=== PATIENT | male | born 1940 | race Caucasian/White ===

== ENCOUNTER 2017-03-30 05:12 | Emergency (ER) | payer OTHER ==
[~2017-03-30] VITALS: Ht 170.2 cm; Wt 84.1 kg
[~2017-03-30 05:12] MED LIST: AMLODIPINE BESY10 MG PO
[2017-03-30 06:08] LABS: ADD MIUA? NO; BILIRUBIN NEGATIVE; BLOOD NEGATIVE; COLOR YELLOW ((YELLOW)); GLUCOSE (STRIP) NEGATIVE; KETONES 5; LEUKOCYTES NEGATIVE; NITRITE NEGATIVE; PROTEIN (STRIP) NEGATIVE; SPECIFIC GRAVITY 1.008 (1.000-1.030); UCUL ADDED? NO; UROBILINOGEN 0.2 MG/DL (0.2-1.0)
[2017-03-30 06:09] LABS: HEMATOCRIT 44.2 % (38.0-50.0); MCHC 32.6 G/DL (30.0-36.0); MCV 89.1 FL (86-99); MEAN PLAT.VOLUME 9.8 uM^3 (9.0-12.4); PLATELET COUNT 262 K/uL (156-360); RBC DIS.WIDTH-CV 12.4 % (11.8-14.6); RBC DIS.WIDTH-SD 40.2 % (39-53); RED BLOOD COUNT 4.96 M/uL (4.00-5.50); WHITE BLOOD COUNT 10.8 K/uL (4.1-10.2)
[2017-03-30 06:27] LABS: CHLORIDE 104 mEq/L (99-109); SODIUM 141 mEq/L (136-147)
[2017-03-30 06:28] LABS: GLUCOSE 132 mg/dL (70-99)
[2017-03-30 06:30] LABS: ANION GAP 10 MEQ/L (2-14)
[2017-03-30 06:32] LABS: GFR ESTIMATE (CALCULATED) > 59 mL/min/
[2017-03-30 06:33] LABS: UREA NITROGEN (BUN) 13 mg/dL (9-23)
[2017-03-30 07:22] LABS: DIRECT BILIRUBIN 0.1 mg/dL (0.0-0.3); TOTAL BILIRUBIN 0.8 MG/DL (0.0-1.0)
[2017-03-30 07:27] LABS: ALKALINE PHOSPHATASE 166 IU/L (3-129); LIPASE 195 U/L (1.0-51.0)
[2017-03-30] MEDS ORDERED: PERCOCET 5/31 TABLET PO (07:41)
[2017-03-30] MEDS ORDERED: LIDODERM 5% P1 PATCH TD (07:41)
[2017-03-30 08:18] VITALS: BP 145/87
== END 2017-03-30 08:27 | disposition home or self-care (01) ==
LOC: EME → EDBD 05:12 → EME 08:27
PROVIDERS: Emergency Medicine
DX: M54.42 Lumbago with sciatica, left side (principal); K86.1 Other chronic pancreatitis; R79.89 Other specified abnormal findings of blood chemistry; I10 Essential (primary) hypertension; K21.9 Gastro-esophageal reflux disease without esophagitis; Z87.891 Personal history of nicotine dependence
CPT/HCPCS: 74176; 80048; 80076; 81003; 83690; 85027; 99281; 99283; J1885; J2270; J2405; J7030

== ENCOUNTER 2017-04-24 15:45 | Inpatient (IN) | payer OTHER ==
[~2017-04-24] VITALS: Ht 180.3 cm; Wt 87.3 kg
[~2017-04-24 15:45] MED LIST changes: +LIDODERM 5% P1 PATCH TD; +PERCOCET 5/31 TABLET PO
[2017-04-24 16:34] LABS: BASOPHIL COUNT 0.1 K/uL (0-0.1); EOSINOPHIL (%) 0.8 % (0-5); EOSINOPHIL COUNT 0.1 K/uL (0-0.3); HEMATOCRIT 39.4 % (38.0-50.0); IMMATURE GRANULOCYTE (%) 0.7 % (0.0-0.7); IMMATURE GRANULOCYTE COUNT 0.1 K/uL; INSTRUMENT ABS NEUTROPHIL CT 7.8 K/uL; LYMPHOCYTE COUNT 1.9 K/uL (1.0-2.8); MCHC 32.5 G/DL (30.0-36.0); MCV 89.1 FL (86-99); MEAN PLAT.VOLUME 9.8 uM^3 (9.0-12.4); MONOCYTE (%) 7.2 % (3-12); MONOCYTE COUNT 0.8 K/uL (0-0.8); NEUTROPHIL (%) 72.9 % (45-76); NEUTROPHIL COUNT 7.8 K/uL (1.8-6.4); PLATELET COUNT 346 K/uL (156-360); RBC DIS.WIDTH-SD 39.4 % (39-53); RED BLOOD COUNT 4.42 M/uL (4.00-5.50); WHITE BLOOD COUNT 10.7 K/uL (4.1-10.2)
[2017-04-24 16:38] LABS: PROTHROMBIN TIME 11.4 SEC (10.2-12.9)
[2017-04-24 16:40] LABS: CHLORIDE 106 mEq/L (99-109); POTASSIUM 4.2 mEq/L (3.7-5.4); SODIUM 140 mEq/L (136-147)
[2017-04-24 16:41] LABS: PTT 27.5 SEC (25-37)
[2017-04-24 16:43] LABS: GLUCOSE 101 mg/dL (70-99)
[2017-04-24 16:44] LABS: ANION GAP 9 MEQ/L (2-14)
[2017-04-24 16:45] LABS: TOTAL BILIRUBIN 0.4 mg/dL (0.0-1.0)
[2017-04-24 16:46] LABS: ALKALINE PHOSPHATASE 145 IU/L (3-129)
[2017-04-24 16:47] LABS: GFR ESTIMATE (CALCULATED) > 59 mL/min/
[2017-04-24 16:48] LABS: DIRECT BILIRUBIN 0.2 mg/dL (0.0-0.3); UREA NITROGEN (BUN) 23 mg/dL (9-23)
[2017-04-24 16:50] LABS: LIPASE 19 U/L (1.0-51.0)
[2017-04-24 16:52] LABS: TROP-I INTERPRETATION NEGATIVE; TROPONIN-I < 0.01 ng/mL (0.0-0.30)
[2017-04-24] MEDS ORDERED: AMLODIPINE BESYL5 MG PO (17:50)
[2017-04-24] MEDS ORDERED: LATANOPROST2.5 ML BOTH EYES (17:50)
[2017-04-24] MEDS ORDERED: ASPIR 8181 M1 PO (17:50)
[2017-04-24] MEDS ORDERED: LIDODERM 5% P1 PATCH TD (17:50)
[2017-04-24 18:39] LABS: ADD MIUA? YES; BILIRUBIN NEGATIVE; BLOOD SMALL; COLOR YELLOW ((YELLOW)); GLUCOSE (STRIP) NEGATIVE; KETONES NEGATIVE; LEUKOCYTES NEGATIVE; NITRITE NEGATIVE; PROTEIN (STRIP) NEGATIVE; SPECIFIC GRAVITY 1.014 (1.000-1.030); UROBILINOGEN 0.2 MG/DL (0.2-1.0)
[2017-04-24 18:46] LABS: BACTERIA RARE /HPF; EPITHELIAL CELLS NONE SEEN /HPF; MUCUS NONE SEEN /LPF; RED BLOOD CELLS 0-5 /HPF (0-5); UCUL ADDED? NO; WHITE BLOOD CELLS 0-5 /HPF (0-5)
[2017-04-24 19:39] VITALS: BP 181/99
[2017-04-24 21:41] LABS: HEMATOCRIT 37.7 % (38.0-50.0); MCV 89.5 FL (86-99)
[2017-04-25 00:12] VITALS: BP 138/75
[2017-04-25 04:17] VITALS: BP 154/87
[2017-04-25 06:17] LABS: HEMATOCRIT 36.8 % (38.0-50.0); MCH 28.5 PG (29.0-34.0); MCHC 31.8 G/DL (30.0-36.0); MCV 89.8 FL (86-99); MEAN PLAT.VOLUME 10.2 uM^3 (9.0-12.4); PLATELET COUNT 333 K/uL (156-360); RBC DIS.WIDTH-CV 12.1 % (11.8-14.6); RBC DIS.WIDTH-SD 39.6 % (39-53); WHITE BLOOD COUNT 8.5 K/uL (4.1-10.2)
[2017-04-25 06:45] LABS: ANION GAP 6 MEQ/L (2-14); CHLORIDE 107 MEQ/L (99-109); GFR ESTIMATE (CALCULATED) > 59 mL/min/; GLUCOSE 111 mg/dL (70-99); POTASSIUM 4.7 MEQ/L (3.7-5.4); SAMPLE HEMOLYSIS CHECK 0; SAMPLE ICTERIC CHECK 0; SAMPLE LIPEMIA CHECK 0; SODIUM 142 MEQ/L (136-147); UREA NITROGEN (BUN) 18 mg/dL (9-23)
[2017-04-25 08:04] VITALS: BP 144/88
[2017-04-25 12:17] VITALS: BP 168/82
[2017-04-25 17:30] VITALS: BP 143/93
== END 2017-04-25 20:25 | disposition home or self-care (01) | DRG 379 ==
LOC: EME 15:45 → EDOF 18:13 → 5WEST 18:13 → EDOF 18:13 → ENRESERV 18:16 → 5WEST 19:29 → ENRESERV 04-25 09:10 → 5WEST 04-25 20:25
PROVIDERS: Emergency Medicine; Hospitalist
PROC: 0DJD8ZZ Inspection of Lower Intestinal Tract, Via Natural or Artificial Opening Endoscopic (ICD-10-PCS; principal; 2017-04-25)
DX: K57.31 Diverticulosis of large intestine without perforation or abscess with bleeding (principal); K64.8 Other hemorrhoids; K56.41 Fecal impaction; I25.10 Atherosclerotic heart disease of native coronary artery without angina pectoris; E78.5 Hyperlipidemia, unspecified; D64.9 Anemia, unspecified; I10 Essential (primary) hypertension; H40.9 Unspecified glaucoma; K21.9 Gastro-esophageal reflux disease without esophagitis; K42.9 Umbilical hernia without obstruction or gangrene; K43.2 Incisional hernia without obstruction or gangrene; M19.90 Unspecified osteoarthritis, unspecified site; Z79.82 Long term (current) use of aspirin; Z86.010 Personal history of colon polyps; Z87.19 Personal history of other diseases of the digestive system; Z90.49 Acquired absence of other specified parts of digestive tract; Z82.49 Family history of ischemic heart disease and other diseases of the circulatory system
CPT/HCPCS: 71020; 74177; 80048; 80076; 81003; 83605; 83690; 83880; 84484; 85014; 85018; 85025; 85027; 85610; 85730; 86850; 86900; 86901; 99281; 99285; G0378; J2405

== ENCOUNTER 2017-07-13 03:51 | Inpatient (IN) | payer OTHER ==
[~2017-07-13] VITALS: Ht 170.2 cm; Wt 88.4 kg
[~2017-07-13 03:51] MED LIST changes: +ASPIR 8181 M1 PO; +LATANOPROST2.5 ML BOTH EYES; +NORVASC10 MG PO
[2017-07-13 04:18] LABS: BASOPHIL COUNT 0.1 K/uL (0-0.1); EOSINOPHIL (%) 1.4 % (0-5); EOSINOPHIL COUNT 0.1 K/uL (0-0.3); HEMATOCRIT 43.2 % (38.0-50.0); IMMATURE GRANULOCYTE (%) 0.5 % (0.0-0.7); INSTRUMENT ABS NEUTROPHIL CT 6.2 K/uL; LYMPHOCYTE COUNT 1.8 K/uL (1.0-2.8); MCH 28.8 PG (29.0-34.0); MCHC 32.6 G/DL (30.0-36.0); MCV 88.3 FL (86-99); MEAN PLAT.VOLUME 9.8 uM^3 (9.0-12.4); MONOCYTE (%) 6.7 % (3-12); MONOCYTE COUNT 0.6 K/uL (0-0.8); NEUTROPHIL (%) 70.1 % (45-76); NEUTROPHIL COUNT 6.2 K/uL (1.8-6.4); PLATELET COUNT 263 K/uL (156-360); RBC DIS.WIDTH-SD 38.8 % (39-53); RED BLOOD COUNT 4.89 M/uL (4.00-5.50); WHITE BLOOD COUNT 8.8 K/uL (4.1-10.2)
[2017-07-13 04:24] LABS: PROTHROMBIN TIME 11.2 SEC (10.2-12.9)
[2017-07-13 04:26] LABS: PTT 24.6 SEC (25-37)
[2017-07-13 04:31] LABS: AMYLASE 51 IU/L (1-118); CHLORIDE 105 mEq/L (99-109); POTASSIUM 3.6 mEq/L (3.7-5.4); SODIUM 138 mEq/L (136-147)
[2017-07-13 04:32] LABS: GLUCOSE 184 mg/dL (70-99)
[2017-07-13 04:34] LABS: ANION GAP 8 MEQ/L (2-14)
[2017-07-13 04:36] LABS: GFR ESTIMATE (CALCULATED) > 59 mL/min/ (58.99-99999); SERUM ETHYL ALCOHOL < 10 mg/dL
[2017-07-13 04:37] LABS: UREA NITROGEN (BUN) 10 mg/dL (9-23)
[2017-07-13 04:39] LABS: LIPASE 17 U/L (1.0-51.0)
[2017-07-13 04:45] LABS: TROP-I INTERPRETATION NEGATIVE; TROPONIN-I < 0.01 ng/mL (0.0-0.30)
[2017-07-13 05:15] LABS: ADD MIUA? YES; BILIRUBIN NEGATIVE; BLOOD NEGATIVE; COLOR YELLOW ((YELLOW)); GLUCOSE (STRIP) NEGATIVE; KETONES 20; LEUKOCYTES NEGATIVE; NITRITE NEGATIVE; PROTEIN (STRIP) NEGATIVE; SPECIFIC GRAVITY 1.012 (1.000-1.030); UROBILINOGEN 0.2 MG/DL (0.2-1.0)
[2017-07-13 05:20] LABS: BACTERIA NONE SEEN /HPF; EPITHELIAL CELLS NONE SEEN /HPF; MUCUS TRACE /LPF; RED BLOOD CELLS 0-5 /HPF (0-5); UCUL ADDED? NO; WHITE BLOOD CELLS 0-5 /HPF (0-5)
[2017-07-13 05:25] LABS: AMPHETAMINE NEGATIVE (500 ng/mL); BARBITURATES NEGATIVE (200 ng/mL); BENZODIAZEPINES NEGATIVE (150 ng/mL); COCAINE NEGATIVE (150 ng/mL); INTERNAL CONTROLS VALID? YES; METHADONE NEGATIVE (200 ng/mL); METHAMPHETAMINE NEGATIVE (500 ng/mL); OPIATES (MORPHINE) NEGATIVE (100 ng/mL); OXYCODONE NEGATIVE (100 ng/mL); PHENCYCLIDINE NEGATIVE (25 ng/mL); PROPOXYPHENE NEGATIVE (300 ng/mL); THC CANNABINOIDS NEGATIVE (50 ng/mL); TRICYCLIC ANTIDEPRESSANTS NEGATIVE (300 ng/mL)
[2017-07-13 09:50] LABS: HDL CHOLESTEROL 33 MG/DL (Desirable>=40); LDL CHOLESTEROL 141 mg/dL (Desirable<100); NON-HDL CHOLESTEROL 174 mg/dL (Desirable<160); TOTAL CHOLESTEROL 207 mg/dL (Desirable<200); TRIGLYCERIDES 164 MG/DL (Normal: <150)
[2017-07-13 09:55] LABS: Estimated Average Glucose 140 mg/dL (70-123); HEMOGLOBIN A1c (GLYCOHEMOGLOB) 6.5 % HGB (Below 5.7)
[2017-07-13 11:39] LABS: POINT-OF-CARE METER ID UU13113702
[2017-07-13 11:45] LABS: TROP-I INTERPRETATION NEGATIVE; TROPONIN-I < 0.01 ng/mL (0.0-0.30)
[2017-07-13 14:26] VITALS: BP 153/100
[2017-07-13 16:54] LABS: POINT-OF-CARE METER ID UU13113717
[2017-07-13 17:08] LABS: TROP-I INTERPRETATION NEGATIVE; TROPONIN-I < 0.01 ng/mL (0.0-0.30)
[2017-07-13 19:40] VITALS: BP 152/78
[2017-07-13 23:42] VITALS: BP 136/92
[2017-07-14 04:03] VITALS: BP 141/90
[2017-07-14 07:50] VITALS: BP 145/87
[2017-07-14 09:16] LABS: BASOPHIL COUNT 0.1 K/uL (0-0.1); EOSINOPHIL (%) 1.2 % (0-5); EOSINOPHIL COUNT 0.1 K/uL (0-0.3); HEMATOCRIT 44.1 % (38.0-50.0); IMMATURE GRANULOCYTE (%) 0.4 % (0.0-0.7); INSTRUMENT ABS NEUTROPHIL CT 4.9 K/uL; LYMPHOCYTE COUNT 1.6 K/uL (1.0-2.8); MCH 29.4 PG (29.0-34.0); MCHC 32.9 G/DL (30.0-36.0); MCV 89.3 FL (86-99); MEAN PLAT.VOLUME 9.9 uM^3 (9.0-12.4); MONOCYTE (%) 8.6 % (3-12); MONOCYTE COUNT 0.6 K/uL (0-0.8); NEUTROPHIL (%) 67.4 % (45-76); NEUTROPHIL COUNT 4.9 K/uL (1.8-6.4); PLATELET COUNT 290 K/uL (156-360); RBC DIS.WIDTH-CV 12.2 % (11.8-14.6); RBC DIS.WIDTH-SD 39.9 % (39-53); RED BLOOD COUNT 4.94 M/uL (4.00-5.50); WHITE BLOOD COUNT 7.2 K/uL (4.1-10.2)
[2017-07-14 09:24] LABS: POINT-OF-CARE METER ID UU13113717
[2017-07-14 09:41] LABS: ALKALINE PHOSPHATASE 121 IU/L (3-129); ANION GAP 9 MEQ/L (2-14); CHLORIDE 103 MEQ/L (99-109); GFR ESTIMATE (CALCULATED) > 59 mL/min/ (58.99-99999); GLUCOSE 121 mg/dL (70-99); SAMPLE HEMOLYSIS CHECK 2; SAMPLE ICTERIC CHECK 0; SAMPLE LIPEMIA CHECK 0; SODIUM 140 MEQ/L (136-147); TOTAL BILIRUBIN 0.6 MG/DL (0.0-1.0); UREA NITROGEN (BUN) 10 mg/dL (9-23)
[2017-07-14 10:00] LABS: POTASSIUM 5.1 MEQ/L (3.7-5.4)
[2017-07-14 12:21] LABS: POINT-OF-CARE METER ID UU14174225
[2017-07-14 15:27] VITALS: BP 162/90
[2017-07-14 17:06] LABS: POINT-OF-CARE METER ID UU13113717
[2017-07-14 19:48] VITALS: BP 116/65
[2017-07-14 23:39] VITALS: BP 142/82
[2017-07-15 03:32] VITALS: BP 110/64
[2017-07-15 07:02] LABS: BASOPHIL COUNT 0.1 K/uL (0-0.1); EOSINOPHIL (%) 1.7 % (0-5); EOSINOPHIL COUNT 0.1 K/uL (0-0.3); HEMATOCRIT 43.9 % (38.0-50.0); IMMATURE GRANULOCYTE (%) 0.6 % (0.0-0.7); IMMATURE GRANULOCYTE COUNT 0.1 K/uL; INSTRUMENT ABS NEUTROPHIL CT 5.6 K/uL; LYMPHOCYTE COUNT 1.7 K/uL (1.0-2.8); MCH 29.3 PG (29.0-34.0); MCHC 32.8 G/DL (30.0-36.0); MCV 89.4 FL (86-99); MONOCYTE (%) 9.1 % (3-12); MONOCYTE COUNT 0.8 K/uL (0-0.8); NEUTROPHIL (%) 67.8 % (45-76); NEUTROPHIL COUNT 5.6 K/uL (1.8-6.4); PLATELET COUNT 272 K/uL (156-360); RBC DIS.WIDTH-CV 12.1 % (11.8-14.6); RED BLOOD COUNT 4.91 M/uL (4.00-5.50); WHITE BLOOD COUNT 8.3 K/uL (4.1-10.2)
[2017-07-15 07:18] LABS: POINT-OF-CARE METER ID UU14174225
[2017-07-15 07:33] VITALS: BP 151/82
[2017-07-15] MEDS ORDERED: ATORVASTATIN CA40 MG PO (11:25)
[2017-07-15] MEDS ORDERED: CLOPIDOGREL75 MG PO (11:25)
[2017-07-15] MEDS ORDERED: ZITHROMAX500 MG PO (11:27)
[2017-07-15] MEDS ORDERED: METFORMIN HCL500 MG PO (11:27)
[2017-07-15] MEDS ORDERED: AUGMENTIN500 MG PO (11:28)
[2017-07-15 11:50] LABS: POINT-OF-CARE METER ID UU14174225
[2017-07-15 11:56] VITALS: BP 127/78
== END 2017-07-15 13:57 | disposition home or self-care (01) | DRG 64 ==
LOC: EME → EDBD 03:51 → EME 03:51 → 5SOUTH 07:59 → EDOF 07:59 → ENRESERV 08:05 → 5SOUTH 12:20 → EDOF 12:23 → ENRESERV 12:24 → 5SOUTH 14:05
PROVIDERS: Emergency Medicine; Internal Medicine
DX: I63.22 Cerebral infarction due to unspecified occlusion or stenosis of basilar artery (principal); J18.9 Pneumonia, unspecified organism; I63.542 Cerebral infarction due to unspecified occlusion or stenosis of left cerebellar artery; F17.210 Nicotine dependence, cigarettes, uncomplicated; R47.01 Aphasia; R29.711 NIHSS score 11; R29.810 Facial weakness; K21.9 Gastro-esophageal reflux disease without esophagitis; G81.90 Hemiplegia, unspecified affecting unspecified side; E78.5 Hyperlipidemia, unspecified; I10 Essential (primary) hypertension; I35.0 Nonrheumatic aortic (valve) stenosis; M54.9 Dorsalgia, unspecified; Z79.82 Long term (current) use of aspirin; Z79.02 Long term (current) use of antithrombotics/antiplatelets; Z90.49 Acquired absence of other specified parts of digestive tract; Z79.84 Long term (current) use of oral hypoglycemic drugs; Z82.49 Family history of ischemic heart disease and other diseases of the circulatory system
CPT/HCPCS: 70450; 70498; 70551; 71020; 71275; 80048; 80053; 80061; 81003; 82150; 82948; 83036; 83605; 83690; 83880; 84484; 85025; 85027; 85610; 85730; 86850; 86900; 86901; 87040; 87070; 87205; 92610 GN; 93005; 93880; 99281; 99285; G0480; J0456; J0696; J1650; J1815; J2405

== ENCOUNTER 2017-08-01 21:33 | Inpatient (IN) | payer OTHER ==
[~2017-08-01] VITALS: Ht 172.7 cm; Wt 89.1 kg
[~2017-08-01 21:33] MED LIST changes: +ALEVE220 MG PO; +ATORVASTATIN CA40 MG PO; +AUGMENTIN500 MG PO; +CLOPIDOGREL75 MG PO; +LIPITOR40 MG PO; +METFORMIN HCL500 MG PO; +PLAVIX75 MG PO; +PROTONIX20 MG PO; +ZITHROMAX500 MG PO
[2017-08-02] VITALS (9 sets, daily range): BP systolic 114–156; BP diastolic 60–81
[2017-08-02] MEDS ORDERED: HYDROCODON-ACE1 EAC7 PO (17:27)
[2017-08-03 04:35] VITALS: BP 133/78
[2017-08-03 08:12] VITALS: BP 137/70
[2017-08-03 11:08] VITALS: BP 150/71
== END 2017-08-03 12:15 | disposition home or self-care (01) | DRG 39 ==
LOC: ENRESERV 21:33 → 2SOUTH 08-02 07:15 → ENRESERV 08-02 12:37 → 4WEST 08-02 13:24 → 2SOUTH 08-02 13:57 → ENRESERV 08-02 18:06 → 4EAST 08-02 20:10
PROVIDERS: Surgery
DX: I65.21 Occlusion and stenosis of right carotid artery (principal); Z86.73 Personal history of transient ischemic attack (TIA), and cerebral infarction without residual deficits; E11.9 Type 2 diabetes mellitus without complications; I10 Essential (primary) hypertension; Z79.02 Long term (current) use of antithrombotics/antiplatelets
CPT/HCPCS: 82948; 87641; 93005; 94799; C1768; J0131; J0690; J1644; J1650; J1815; J2720; J2795; J3010; J7120